=== PATIENT | male | born 1960 | race Caucasian/White ===

== ENCOUNTER 2022-03-22 13:25 | Outpatient (CLI) | payer BC ==
[2022-03-22 15:42] LABS: #Basophils 0.1 10x3/uL (0.0-0.2); #Eosinphils 0.2 10x3/uL (0.0-0.5); #Neutrophils 6.3 10x3/uL (1.5-8.4); %Basophils 0.7 % (0.0-2.0); %Eosinophils 2.4 % (0.0-6.0); %Monocytes 11.5 % (0.0-10.0); Hemoglobin 14.5 g/dL (13.5-17.5); Mean Corpuscular HGB CONC 32.5 g/dL (32.0-36.0); Mean Corpuscular Hemoglobin 26.7 pg (27.0-33.0); Mean Corpuscular Volume 82.1 fl (81.2-95.1); Mean Platelet Volume 8.6 fl (7.4-10.4); Platelet Count 397 10x3/uL (150-450); RBC Distribution Width 18.6 % (11.5-14.5); Red Blood Cell (RBC) Count 5.43 10x6/uL (4.32-5.72); White Blood Cell (WBC) Count 9.1 10x3/uL (3.5-10.5)
[2022-03-22 15:58] LABS: Anion Gap 15 mmol/L (10-20); BUN (Urea Nitrogen) 11 mg/dL (8.4-25.7); Calc. Creatinine Clearance 0 mL/min (70-130); Calcium 9.4 mg/dL (7.8-10.44); Carbon Dioxide 21 mmol/L (22-29); Chloride 104 mmol/L (98-107); Estimated GFR 95; Glucose 95 mg/dL (70-105); Potassium 4.6 mmol/L (3.5-5.1); Sodium 135 mmol/L (136-145)
[2022-03-22 19:48] LABS: Hemoglobin A1c 5.4 % (4.0-6.0)
== END 2022-03-22 13:26 | disposition home or self-care (01) ==
LOC: LABBT 13:25
PROVIDERS: ATTEND Surgery
DX: Z01.818 Encounter for other preprocedural examination (principal); K63.89 Other specified diseases of intestine; Z20.822 Contact with and (suspected) exposure to COVID-19
CPT/HCPCS: 80048; 83036; 85025; 87811; 93005; 93010

== ENCOUNTER 2022-03-22 14:00 | Inpatient (IN) | payer OTHER ==
[2022-03-23 14:38] VITALS: BMI 23.6
[2022-03-27] MEDS ORDERED: Fentanyl 100 MCG/2 ML VIAL ONE ×2 (09:47→14:51)
[2022-03-27] MEDS ORDERED: Midazolam HCl 2 mg/2 ml Vial ONE (09:47)
[2022-03-27] MEDS ORDERED: Lidocaine 1% (PF) 30 ML VIAL ONE (09:48)
[2022-03-27] MEDS ORDERED: Ropivacaine 0.5% HCl/PF (150 MG/30 ML VIAL) ONE (10:20)
[2022-03-27] MEDS ORDERED: cefOXitin 2 GM VIAL ONE ×2 (11:29→13:57)
[2022-03-27] MEDS ORDERED: Sodium Chloride 0.9% 100 ML ONE (11:30)
[2022-03-27] MEDS ORDERED: fentaNYL PF 100 MCG/2 ML SYRINGE ONE (11:38)
[2022-03-27] MEDS ORDERED: SUGAMMADEX SODIUM 200 MG/2 ML VIAL ONE (11:39)
[2022-03-27] MEDS ORDERED: Ondansetron PF 4 MG/2 ML Vial ONE (12:05)
[2022-03-27] MEDS ORDERED: Rocuronium Bromide 10 MG/ML (10ML VIAL) ONE (12:05)
[2022-03-27] MEDS ORDERED: NEOSTIGMINE 3 MG/3 ML SYR 3 MG/3 ML SYRINGE ONE (12:05)
[2022-03-27] MEDS ORDERED: PROPOFOL 200 MG/20 ML VIAL ONE (12:05)
[2022-03-27] MEDS ORDERED: Glycopyrrolate 0.2 MG/ML 5 ML SYRINGE ONE (12:05)
[2022-03-27] MEDS ORDERED: Lidocaine 1% MPF 2 ML VIAL ONE (12:05)
[2022-03-27] MEDS ORDERED: Dexamethasone 20 MG/5 ML VIAL ONE (12:05)
[2022-03-27] MEDS ORDERED: HYDROmorphone 0.5 MG/0.5 ML SYRINGE ONE (13:57)
[2022-03-27] MEDS ORDERED: Promethazine HCl 25 MG/ML VIAL IVPB PRN (14:45)
[2022-03-27] MEDS ORDERED: Promethazine HCl 25 MG/ML VIAL IM PRN ×3 (14:45→20:02)
[2022-03-27] MEDS ORDERED: Ondansetron HCl/PF 4 MG/2 ML Vial IVP PRN (14:45)
[2022-03-27] MEDS ORDERED: Ondansetron PF 4 MG/2 ML Vial IVP PRN ×2 (15:01→20:02)
[2022-03-27] MEDS ORDERED: hydrALAZINE 20 MG/ML VIAL SLOW IVP PRN (15:01)
[2022-03-27] MEDS ORDERED: Promethazine HCl 25 MG/ML VIAL ONE (15:09)
[2022-03-27] MEDS ORDERED: hydrALAZINE 20 MG/ML VIAL ONE (15:16)
[2022-03-27] MEDS: Ketorolac Tromethamine 30 MG/ML VIAL IVP PRN (17:01)
[2022-03-27] MEDS: D5 1/2 NS w/20 mEq KCL 1,000 ML IV SCH ×2 (17:02→22:06)
[2022-03-27] MEDS: Fentanyl 100 MCG/2 ML VIAL SLOW IVP PRN ×2 (17:36→19:54)
[2022-03-27] MEDS ORDERED: Zolpidem Tartrate 5 MG TAB PO PRN (20:02)
[2022-03-27] MEDS ORDERED: diphenhydrAMINE 50 MG/ML VIAL IVP PRN (20:02)
[2022-03-27] MEDS ORDERED: Naloxone HCl 0.4 mg/ml Vial IV PRN (20:02)
[2022-03-27] MEDS ORDERED: FENTANYL 500 MCG/10 ML VIAL 2,000 MCG in Sodium Chloride 0.9% 60 ML IV PRN (20:02)
[2022-03-27] MEDS ORDERED: diphenhydrAMINE 50 MG/ML VIAL IM PRN (20:02)
[2022-03-27] MEDS ORDERED: diphenhydrAMINE 25 MG CAP PO PRN (20:02)
[2022-03-27] MEDS ORDERED: Communication Order-Pharmacy FS SCH (20:15)
[2022-03-27] MEDS: Famotidine/PF 20 mg/2ml Vial SLOW IVP SCH (22:05)
[2022-03-27] MEDS: cefOXitin Sodium 1 GM in Sodium Chloride 0.9% 100 ML IVPB SCH (22:53)
[2022-03-28] MEDS: Famotidine 20 MG TAB PO SCH ×3 (04:33→20:47)
[2022-03-28 05:26] LABS: #Lymphocytes 1.5 thou/uL (1.20-3.40); #Monocytes 1.7 thou/uL (0.11-0.59); #Neutrophils 10.1 thou/uL (1.40-6.50); %Basophils 0.3 % (0.0-1.0); %Eosinophils 0.2 % (0.0-10.0); %Lymphocytes 11.4 % (21.0-51.0); %Monocytes 12.7 % (0.0-10.0); %Neutrophils 75.5 % (42.0-75.0); Hemoglobin 13.5 g/dL (14.0-18.0); Mean Corpuscular HGB CONC 31.8 g/dL (32.0-36.0); Mean Corpuscular Hemoglobin 27.6 pg (27.0-31.0); Mean Corpuscular Volume 86.8 fL (78.0-98.0); Mean Platelet Volume 6.4 fL (7.4-10.4); Platelet Count 364 thou/uL (130-400); RBC Distribution Width 16.7 % (11.5-14.5); Red Blood Cell (RBC) Count 4.89 mill/uL (4.70-6.10); White Blood Cell (WBC) Count 13.4 thou/uL (4.8-10.8)
[2022-03-28] MEDS: cefOXitin Sodium 1 GM in Sodium Chloride 0.9% 100 ML IVPB SCH (05:34)
[2022-03-28 05:42] LABS: Anion Gap 12 mmol/L (10-20); BUN (Urea Nitrogen) 7 mg/dL (8.4-25.7); Calc. Creatinine Clearance 72 mL/min (70-130); Calcium 8.7 mg/dL (7.8-10.44); Carbon Dioxide 23 mmol/L (22-29); Chloride 103 mmol/L (98-107); Estimated GFR 73; Glucose 132 mg/dL (70-105); Potassium 4.3 mmol/L (3.5-5.1); Sodium 134 mmol/L (136-145)
[2022-03-28] MEDS: D5 1/2 NS w/20 mEq KCL 1,000 ML IV SCH ×3 (07:49→22:55)
[2022-03-28] MEDS: Enoxaparin Sodium 40 MG/0.4 ML SYRINGE SC SCH (09:05)
[2022-03-28] MEDS: Famotidine/PF 20 mg/2ml Vial SLOW IVP SCH ×2 (09:05→23:55)
[2022-03-28] MEDS ORDERED: HYDROcodone/Acetaminophen 7.5/325 mg Tablet PO PRN (14:39)
[2022-03-29] MEDS: Famotidine 20 MG TAB PO SCH ×2 (08:45→21:07)
[2022-03-29] MEDS: Enoxaparin Sodium 40 MG/0.4 ML SYRINGE SC SCH (08:45)
[2022-03-29] MEDS: Famotidine/PF 20 mg/2ml Vial SLOW IVP SCH (08:45)
[2022-03-29] MEDS ORDERED: Fentanyl 100 MCG/2 ML VIAL SLOW IVP PRN (10:16)
[2022-03-29] MEDS: HYDROcodone/Acetaminophen 7.5/325 mg Tablet PO PRN ×2 (11:08→21:05)
[2022-03-29] MEDS: Ketorolac Tromethamine 30 MG/ML VIAL IVP PRN (16:28)
[2022-03-30] MEDS: Famotidine/PF 20 mg/2ml Vial SLOW IVP SCH ×2 (01:35→08:54)
[2022-03-30] MEDS: HYDROcodone/Acetaminophen 7.5/325 mg Tablet PO PRN ×2 (07:59→13:44)
[2022-03-30] MEDS: Famotidine 20 MG TAB PO SCH (08:53)
[2022-03-30] MEDS: Enoxaparin Sodium 40 MG/0.4 ML SYRINGE SC SCH (08:54)
[2022-03-30 09:27] VITALS: TEMP 97.7
[2022-03-30 12:30] VITALS: BP 145/88
== END 2022-03-30 14:33 | disposition home or self-care (01) | DRG 330 ==
LOC: SURG A 03-27 08:03 → SJJU 03-27 15:36
PROVIDERS: ADMIT Surgery; ATTEND Surgery
PROC: 0DBN4ZZ Excision of Sigmoid Colon, Percutaneous Endoscopic Approach (ICD-10-PCS; principal; 2022-03-27)
PROC: 8E0W4CZ Robotic Assisted Procedure of Trunk Region, Percutaneous Endoscopic Approach (ICD-10-PCS; 2022-03-27)
DX: C18.7 Malignant neoplasm of sigmoid colon (principal); C77.2 Secondary and unspecified malignant neoplasm of intra-abdominal lymph nodes; Z20.822 Contact with and (suspected) exposure to COVID-19; Z88.0 Allergy status to penicillin; Z79.899 Other long term (current) drug therapy; M54.50 Low back pain, unspecified; Z96.651 Presence of right artificial knee joint; K40.20 Bilateral inguinal hernia, without obstruction or gangrene, not specified as recurrent
CPT/HCPCS: 36415; 36416; 80048; 81479; 85025; 88309; 88361; 88377; C1889; J0360; J0694; J1100; J1170; J1650; J1885; J2001; J2250; J2405; J2550; J2704; J2795; J3010; J3480; J3490; S0028

== ENCOUNTER 2022-04-19 07:20 | Outpatient (CLI) | payer OTHER | END 2022-04-19 07:21 | disposition home or self-care (01) | LOC: CT 07:20 | PROVIDERS: ATTEND Internal Medicine Hematology & Oncology | DX: C18.7 Malignant neoplasm of sigmoid colon (principal); J98.59 Other diseases of mediastinum, not elsewhere classified; N40.0 Benign prostatic hyperplasia without lower urinary tract symptoms; N32.89 Other specified disorders of bladder; Z98.890 Other specified postprocedural states | CPT/HCPCS: 71260; 74177 ==

== ENCOUNTER 2022-04-26 06:36 | Day surgery (SDC) | payer OTHER ==
[2022-04-24 11:12] VITALS: BMI 22.6
[2022-04-26] MEDS ORDERED: Midazolam HCl 2 mg/2 ml Vial ONE (08:49)
[2022-04-26] MEDS ORDERED: Lidocaine 2% PF 5 ML VIAL ONE (09:25)
[2022-04-26] MEDS ORDERED: Bupivacaine/Epinephrine 0.25% 30 ML VIAL ONE (09:25)
[2022-04-26] MEDS ORDERED: fentaNYL Citrate/PF 100 MCG/2 ML SYRINGE ONE (09:58)
[2022-04-26] MEDS ORDERED: PROPOFOL 40 ML ONE (09:59)
[2022-04-26] MEDS ORDERED: Famotidine/PF 20 mg/2ml Vial ONE (10:04)
[2022-04-26] MEDS ORDERED: Sodium Chloride 0.9% 100 ML ONE (10:06)
[2022-04-26] MEDS ORDERED: CEFAZOLIN 2 GM VIAL ONE (10:06)
== END 2022-04-26 11:57 | disposition home or self-care (01) ==
LOC: SDC 06:36
PROVIDERS: ATTEND Surgery
PROC: 02HV33Z Insertion of Infusion Device into Superior Vena Cava, Percutaneous Approach (ICD-10-PCS; principal; 2022-04-26)
PROC: 0JH60WZ Insertion of Totally Implantable Vascular Access Device into Chest Subcutaneous Tissue and Fascia, Open Approach (ICD-10-PCS; principal; 2022-04-26)
DX: C18.7 Malignant neoplasm of sigmoid colon (principal); C77.9 Secondary and unspecified malignant neoplasm of lymph node, unspecified; F17.290 Nicotine dependence, other tobacco product, uncomplicated; Z79.899 Other long term (current) drug therapy; Z88.0 Allergy status to penicillin; Z90.49 Acquired absence of other specified parts of digestive tract
CPT/HCPCS: 71045; C1788; J1642; J2001; J2250; J2704; J3490; S0028

== ENCOUNTER 2022-10-11 09:24 | Outpatient (CLI) | payer OTHER ==
[2022-10-11] MEDS ORDERED: Iopamidol 370 76% 100 ML VIAL ONE (15:30)
== END 2022-10-11 09:25 | disposition home or self-care (01) ==
LOC: CT 09:24
PROVIDERS: ATTEND Internal Medicine Hematology & Oncology
DX: C18.7 Malignant neoplasm of sigmoid colon (principal); N32.89 Other specified disorders of bladder; N40.0 Benign prostatic hyperplasia without lower urinary tract symptoms; Z98.890 Other specified postprocedural states
CPT/HCPCS: 71260; 74177; Q9967

== ENCOUNTER 2023-01-03 15:14 | Outpatient (CLI) | payer OTHER ==
[2023-01-03 16:48] LABS: #Basophils 0.1 10x3/uL (0.0-0.2); #Eosinphils 0.1 10x3/uL (0.0-0.5); #Monocytes 0.7 10x3/uL (0.0-1.1); #Neutrophils 2.7 10x3/uL (1.5-8.4); %Eosinophils 2.1 % (0.0-6.0); %Lymphocytes 26.5 % (18.0-47.0); %Neutrophils 56.2 % (40.0-75.0); Hemoglobin 12.5 g/dL (13.5-17.5); Mean Corpuscular HGB CONC 32.6 g/dL (32.0-36.0); Mean Corpuscular Volume 95.3 fl (81.2-95.1); Mean Platelet Volume 9.1 fl (7.4-10.4); Platelet Count 207 10x3/uL (150-450); RBC Distribution Width 17.6 % (11.5-14.5); Red Blood Cell (RBC) Count 4.03 10x6/uL (4.32-5.72); White Blood Cell (WBC) Count 4.9 10x3/uL (3.5-10.5)
[2023-01-03 17:20] LABS: Anion Gap 14 mmol/L (10-20); BUN (Urea Nitrogen) 10 mg/dL (8.4-25.7); Calc. Creatinine Clearance 0 mL/min (70-130); Calcium 9.1 mg/dL (7.8-10.44); Carbon Dioxide 22 mmol/L (23-31); Chloride 105 mmol/L (98-107); Estimated GFR 95; Glucose 91 mg/dL (80-115); Potassium 4.8 mmol/L (3.5-5.1); Sodium 136 mmol/L (136-145)
== END 2023-01-03 15:15 | disposition home or self-care (01) ==
LOC: LABBT 15:14
PROVIDERS: ATTEND Surgery
DX: Z01.818 Encounter for other preprocedural examination (principal); K40.20 Bilateral inguinal hernia, without obstruction or gangrene, not specified as recurrent; K42.9 Umbilical hernia without obstruction or gangrene
CPT/HCPCS: 80048; 85025; 93005; 93010

== ENCOUNTER 2024-07-06 03:23 | Observation (INO) | payer BC, OTHER ==
[2024-07-06] MEDS ORDERED: Ondansetron ODT 4 MG TAB PO PRN (04:10)
[2024-07-06] MEDS ORDERED: Ondansetron PF 4 MG/2 ML Vial IVP PRN (04:10)
[2024-07-06] MEDS ORDERED: Calcium Carbonate 500 MG ChewTAB PO PRN (04:10)
[2024-07-06] MEDS ORDERED: Acetaminophen 650 MG Suppository PR PRN (04:10)
[2024-07-06] MEDS ORDERED: Acetaminophen 325 MG TAB PO PRN (04:10)
[2024-07-06] MEDS ORDERED: Ondansetron PF 4 MG/2 ML Vial ONE ×2 (04:45→09:28)
[2024-07-06] MEDS ORDERED: Morphine 4 MG/ML VIAL ONE (04:45)
[2024-07-06] MEDS: Lactated Ringer's 500 ML IV SCH (05:10)
[2024-07-06 05:17] LABS: #Basophils 0.05 10x3/uL (0.0-0.2); %Basophils 0.3 % (0.0-1.0); %Eosinophils 0.4 % (0.0-10.0); %Lymphocytes 6.3 % (21.0-51.0); %Monocytes 6.8 % (0.0-10.0); %Neutrophils 85.8 % (42.0-75.0); Hematocrit 43.8 % (42.0-52.0); Hemoglobin 14.9 g/dL (14.0-18.0); Mean Corpuscular Hemoglobin 32.5 pg (27.0-31.0); Mean Corpuscular Volume 95.6 fL (78.0-98.0); Mean Platelet Volume 9.1 fL (7.4-10.4); Platelet Count 205 10x3/uL (130-400); RBC Distribution Width 12.6 % (11.5-14.5); Red Blood Cell (RBC) Count 4.58 mill/uL (4.70-6.10)
[2024-07-06 05:32] VITALS: BMI 24.3
[2024-07-06 05:34] VITALS: BP 127/82; TEMP 99.1
[2024-07-06 05:34] LABS: Anion Gap 16 mmol/L (10-20); BUN (Urea Nitrogen) 9 mg/dL (8.4-25.7); Calc. Creatinine Clearance 89 mL/min (70-130); Calcium 8.4 mg/dL (7.8-10.44); Carbon Dioxide 18 mmol/L (23-31); Chloride 109 mmol/L (98-107); Estimated GFR 92; Glucose 95 mg/dL (80-115); Potassium 4.3 mmol/L (3.5-5.1); Sodium 139 mmol/L (136-145)
[2024-07-06] MEDS ORDERED: Morphine 2 MG/ML VIAL SLOW IVP PRN (07:42)
[2024-07-06] MEDS ORDERED: fentaNYL 50 mcg/mL 1 mL Vial ONE (08:48)
[2024-07-06] MEDS ORDERED: PROPOFOL 20 ML ONE (08:48)
[2024-07-06] MEDS ORDERED: Lidocaine 1% PF 5 ML VIAL ONE (08:48)
[2024-07-06] MEDS ORDERED: Rocuronium Bromide 10 MG/ML (10ML VIAL) ONE (08:49)
[2024-07-06] MEDS ORDERED: Famotidine/PF 20 mg/2ml Vial SLOW IVP SCH (09:00)
[2024-07-06] MEDS ORDERED: Famotidine 20 MG TAB PO SCH (09:00)
[2024-07-06] MEDS ORDERED: SUCCINYLCHOLINE/SOD CL,ISO/PF 200 MG/10 ML SYRINGE FS ONE (09:22)
[2024-07-06] MEDS ORDERED: Dexamethasone 20 MG/5 ML VIAL ONE (09:28)
[2024-07-06] MEDS ORDERED: SUGAMMADEX SODIUM 200 MG/2 ML VIAL ONE (09:35)
[2024-07-06] MEDS ORDERED: Pantoprazole 40 MG DR.TAB PO SCH ×2 (10:15→21:00)
== END 2024-07-06 16:07 | disposition home or self-care (01) ==
LOC: ERS 03:23 → ERHOLD 04:26 → SURG A 10:43
PROVIDERS: ADMIT Student in an Organized Health Care Education/Training Program; ATTEND Internal Medicine
PROC: 0DC68ZZ Extirpation of Matter from Stomach, Via Natural or Artificial Opening Endoscopic (ICD-10-PCS; principal; 2024-07-06)
PROC: 0DB68ZX Excision of Stomach, Via Natural or Artificial Opening Endoscopic, Diagnostic (ICD-10-PCS; 2024-07-06)
DX: T18.128A Food in esophagus causing other injury, initial encounter (principal); K31.89 Other diseases of stomach and duodenum; K22.10 Ulcer of esophagus without bleeding; K22.2 Esophageal obstruction; K29.50 Unspecified chronic gastritis without bleeding; K29.80 Duodenitis without bleeding; M19.90 Unspecified osteoarthritis, unspecified site; N40.0 Benign prostatic hyperplasia without lower urinary tract symptoms; E78.5 Hyperlipidemia, unspecified; Z85.038 Personal history of other malignant neoplasm of large intestine; Z96.651 Presence of right artificial knee joint; W44.F3XA Food entering into or through a natural orifice, initial encounter; Z88.0 Allergy status to penicillin; Z88.8 Allergy status to other drugs, medicaments and biological substances
CPT/HCPCS: 36415; 80048; 85025; 88305; 88342; 96374; 96375; J1100; J2272; J2405; J2704; J3010; J7120